=== PATIENT | male | born 1960 | race Caucasian/White ===

== ENCOUNTER 2018-12-14 09:05 | Outpatient (CLI) | payer OTHER ==
--- NOTE | 2018-12-14 10:08 | RAD ---
XR Shoulder Rt 3 View STANDARD: 12/14/2018 12:00 AM CLINICAL INDICATION: Primary osteoarthritis right shoulder COMPARISON: None. FINDINGS: There is severe osteoarthritis of the right shoulder with obliteration of joint space, osseous remode ling of the humeral head, subchondral sclerosis and subchondral, degenerative cyst formation. No fracture evident. IMPRESSION: Severe osteoarthritis of the right shoulder.
--- NOTE | 2018-12-14 11:28 | RAD ---
XR Shoulder Rt Arthrogram Right shoulder arthrogram, under fluoroscopic guidance CLINICAL HISTORY: Osteoarthritis. Chronic right shoulder pain, limited rotational motion. PROCEDURE: Informed consent was obtained from the patient. Respiratory Medicine Physician imaging was performed. The patient's right shoulder was prepped and draped in a standard sterile fashion. Using fluoroscopic guidance, the right shoulder was localized. Topical anesthesia with buffered 1% lidocaine was performed. Subseq uently, uneventful access into the right shoulder was performed with a 22-gauge needle, which was confirmed with a small volume of radiopaque contrast. An 8 cc contrast cocktail containing radiopaque contrast, saline, lidocaine and epinephrine was instilled into the right shoulder joint. Fluoroscopic imaging was acquired and was stored for documentation. The needle was removed. There wer e no procedural complications. Patient tolerated the procedure well. Patient was transferred to CT Department to undergo CT arthrogram. Reference separate report for furt her details. IMPRESSION: Technically successful right shoulder arthrogram, under fluoroscopic guidance.
--- NOTE | 2018-12-14 13:41 | CT ---
CT ARTHROGRAM OF RIGHT SHOULDER: Date: 12/14/18 INDICATION: History of right shoulder pain. COMPARISON: Right shoulder radiograph dated 12/14/18. FINDINGS: There is severe glenohumeral osteoarthrosis. There is an intratendinous delaminating tear involving t he cranial and mid subscapularis at the attachment involving less than 1/3 of the tendon thickness. N o full thickness tear is seen involving the supraspinatus or infraspinatus. No overt muscular atrophy is grossly evident. Biceps tendon is located. There is mild hypertrophy seen within the glenohumeral joint. There is mild AC joint osteoarthrosis. IMPRESSION: 1. Severe glenohumeral osteoarthrosis. 2. 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 3. Mild AC joint osteoarthrosis. POS: OFF
== END 2018-12-14 09:06 | disposition home or self-care (01) ==
LOC: RAD 09:05
PROVIDERS: ATTEND Orthopaedic Surgery
DX: M19.011 Primary osteoarthritis, right shoulder (principal)
CPT/HCPCS: 23350

== ENCOUNTER 2019-01-09 06:59 | Outpatient (CLI) | payer OTHER ==
[2019-01-09 17:52] LABS: #Basophils 0.1 thou/uL (0.0-0.2); #Eosinphils 0.3 thou/uL (0.0-0.7); #Lymphocytes 2.5 thou/uL (1.20-3.40); #Monocytes 0.6 thou/uL (0.11-0.59); #Neutrophils 2.5 thou/uL (1.40-6.50); %Basophils 1.3 % (0.0-1.0); %Eosinophils 5.1 % (0.0-10.0); %Lymphocytes 41.3 % (21.0-51.0); %Monocytes 9.6 % (0.0-10.0); %Neutrophils 42.7 % (42.0-75.0); Hemoglobin 15.1 g/dL (14.0-18.0); Mean Corpuscular HGB CONC 35.1 g/dL (32.0-36.0); Mean Corpuscular Hemoglobin 31.2 pg (27.0-31.0); Mean Corpuscular Volume 88.9 fL (78.0-98.0); Mean Platelet Volume 6.9 fL (7.4-10.4); Platelet Count 299 thou/uL (130-400); RBC Distribution Width 11.4 % (11.5-14.5); Red Blood Cell (RBC) Count 4.83 mill/uL (4.70-6.10); White Blood Cell (WBC) Count 5.9 thou/uL (4.8-10.8)
[2019-01-09 18:13] LABS: Anion Gap 11 mmol/L (10-20); BUN (Urea Nitrogen) 12 mg/dL (8.4-25.7); Calc. Creatinine Clearance 0 mL/min (70-130); Calcium 10.1 mg/dL (7.8-10.44); Carbon Dioxide 33 mmol/L (22-29); Chloride 97 mmol/L (98-107); Estimated GFR-MDRD 82; Glucose 86 mg/dL (70-105); Potassium 3.8 mmol/L (3.5-5.1); Sodium 137 mmol/L (136-145)
== END 2019-01-09 07:00 | disposition home or self-care (01) ==
LOC: LABBT 06:59
PROVIDERS: ATTEND Orthopaedic Surgery
DX: Z01.818 Encounter for other preprocedural examination (principal); M19.011 Primary osteoarthritis, right shoulder
CPT/HCPCS: 80048; 85025; 87081; 93005; 93010

== ENCOUNTER 2019-01-12 07:00 | Inpatient (IN) | payer OTHER ==
[2019-01-12] MEDS ORDERED: Tranexamic Acid 1,000 MG/10 ML VIAL ONE (07:56)
[2019-01-12] MEDS ORDERED: Sodium Chloride 0.9% 100 ML ONE (07:56)
[2019-01-12] MEDS ORDERED: Ondansetron PF 4 MG/2 ML Vial IVP PRN (08:59)
[2019-01-12] MEDS ORDERED: Fentanyl 100 MCG/2 ML VIAL SLOW IVP PRN (08:59)
[2019-01-12] MEDS ORDERED: Zolpidem Tartrate 5 MG TAB PO PRN (08:59)
[2019-01-12] MEDS ORDERED: traMADol HCl 50 MG TAB PO PRN (08:59)
[2019-01-12] MEDS ORDERED: HYDROcodone/Acetaminophen 10/325 mg Tablet PO PRN (08:59)
[2019-01-12] MEDS ORDERED: Promethazine HCl 25 MG/ML VIAL IM PRN ×2 (08:59→12:54)
[2019-01-12] MEDS ORDERED: Ropivacaine 0.2% 550 ML 550 ML NERVE BLCK SCH (08:59)
[2019-01-12] MEDS ORDERED: Midazolam HCl 2 mg/2 ml Vial ONE (09:12)
[2019-01-12] MEDS ORDERED: Fentanyl 100 MCG/2 ML VIAL ONE ×2 (09:12→12:00)
[2019-01-12] MEDS ORDERED: Scopolamine 1.5 mg/72 hour Patch ONE (09:16)
[2019-01-12] MEDS ORDERED: Acetaminophen 325 MG TAB PO PRN (09:30)
[2019-01-12] MEDS ORDERED: Bisacodyl 10 MG SUPP PR PRN (09:30)
[2019-01-12] MEDS ORDERED: PROVENTIL INHALER 6.7 G (200 INHALATIONS) INH PRN (09:32)
[2019-01-12] MEDS ORDERED: Aspirin 81 mg Enteric Coated Tablet PO SCH (09:45)
[2019-01-12] MEDS ORDERED: Glycopyrrolate 0.2 MG/ML 5 ML SYRINGE ONE (10:22)
[2019-01-12] MEDS ORDERED: Lidocaine 1% PF 5 ML VIAL ONE (10:22)
[2019-01-12] MEDS ORDERED: Ropivacaine 0.5% HCl/PF (150 MG/30 ML VIAL) ONE (10:22)
[2019-01-12] MEDS ORDERED: PHENYLEPHRINE-NS 100 MCG/ML 10 ML SYRINGE ONE (10:22)
[2019-01-12] MEDS ORDERED: Ondansetron PF 4 MG/2 ML Vial ONE (10:22)
[2019-01-12] MEDS ORDERED: ePHEDrine/0.9% NaCl/PF SYRINGE 50 mg/10 ml ONE (10:22)
[2019-01-12] MEDS ORDERED: Rocuronium Bromide 10 MG/ML (10ML VIAL) ONE (10:22)
[2019-01-12] MEDS ORDERED: PROPOFOL 200 MG/20 ML VIAL ONE (10:22)
[2019-01-12] MEDS ORDERED: Ropivacaine 0.2% HCl/PF (40 MG/20 ML VIAL) ONE (10:22)
[2019-01-12] MEDS ORDERED: Ondansetron HCl/PF 4 MG/2 ML Vial IVP PRN (12:54)
[2019-01-12] MEDS ORDERED: Promethazine HCl 25 MG/ML VIAL SLOW IVP PRN (12:54)
[2019-01-12 13:05] VITALS: BMI 25.0
[2019-01-12] MEDS: Ketorolac Tromethamine 30 MG/ML VIAL IVP SCH ×3 (13:12→22:56)
[2019-01-12] MEDS: Dextrose 5 %-0.45 % NaCl 1,000 ML IV SCH ×2 (14:33→20:35)
[2019-01-12] MEDS: CEFAZOLIN 2 GM in Premix Bag 1 BAG IVPB SCH ×2 (15:50→22:56)
--- NOTE | 2019-01-12 17:33 | OP ---
DATE OF PROCEDURE: 01/12/2019 PREOPERATIVE DIAGNOSIS: Degenerative joint disease of the right shoulder with biceps tendinitis. POSTOPERATIVE DIAGNOSIS: Degenerative joint disease of the right shoulder with biceps tendinitis. PROCEDURES PERFORMED: Right total shoulder arthroplasty and biceps tenodesis. COUNTY AGENT: [place]. BLOOD LOSS: Less than 100. SPECIMEN: None. DRAIN: None. COMPLICATION: None. IMPLANTS USED: Tornier 3C stem with 46 high-offset head, index 1, medium glenoid. NARRATIVE REPORT: After standard deltopectoral approach, I examined the biceps tendon sheath which was inflamed and had a very thick bursal layer over the top with underlying ganglion. Biceps was opened. The biceps tendon sheath was opened. Biceps was in poor condition. It was taken off the superior glenoid tubercle and tacked and then tenodesed using #5 Ethibond suture to bone below the joint. The subscapularis was taken off using an osteotome to make a small lesser trochanteric osteotomy, tagged with four #5 Ethibond sutures. Head was dislocated. Osteophytes were trimmed. I released the anterior capsule, got the subscapularis to an elastic consistency. I then cut the humeral head at a 135-degree angle and trimmed the osteophytes. The head was then broached and sized appropriately. A trial prosthesis was left in the shaft and I approached the glenoid. Bone spurs were removed from around the glenoid. True center of the glenoid was identified. I made a single drill hole and reamed with an appropriate size reamer, trimmed osteophytes, punched the keel and did a trial reduction with the glenoid which appeared to be an appropriate fit. Trials were removed and irrigation was performed. The glenoid was punched into place and cement was allowed to cure. Extraneous cement was removed. Attention was turned back to the humerus where trial heads were used and the appropriate size was confirmed with the appropriate elasticity of the tissues. Trial was removed. Irrigation was performed. Four #5 Ethibond sutures were placed through the lesser tuberosity. The permanent implant was impacted into place. The subscapularis was repaired in a double-row fashion. The rotator interval was repaired with #1 Ethibond. Irrigation performed again. Deltopectoral interval was tacked closed with 0 Vicryl, subcutaneous closed with 2-0 Vicryl. The skin was closed with alex. Sterile dressings applied. The patient was placed in a sling. There were no complications. Job ID: [id number]
[2019-01-12] MEDS ORDERED: Vancomycin 1.5 GRAM/300 ML BAG 1.5 GM in Premix Bag 1 BAG IVPB SCH (20:00)
[2019-01-12] MEDS ORDERED: Losartan 25 MG TAB PO SCH (21:00)
[2019-01-12] MEDS ORDERED: Hydrochlorothiazide 25 MG TAB PO SCH (21:00)
[2019-01-13] MEDS: HYDROcodone/Acetaminophen 10/325 mg Tablet PO PRN ×2 (00:57→06:04)
[2019-01-13] MEDS: traMADol HCl 50 MG TAB PO PRN ×2 (03:27→08:49)
[2019-01-13] MEDS: Ketorolac Tromethamine 30 MG/ML VIAL IVP SCH ×2 (06:01→10:58)
[2019-01-13 07:53] VITALS: BP 125/79; TEMP 98.7
== END 2019-01-13 12:08 | disposition home or self-care (01) | DRG 483 ==
LOC: SURG A 07:00 → SURG B 12:35 → EDSTATUS 17:51
PROVIDERS: ADMIT Orthopaedic Surgery; ATTEND Orthopaedic Surgery
PROC: 0RRJ0JZ Replacement of Right Shoulder Joint with Synthetic Substitute, Open Approach (ICD-10-PCS; principal; 2019-01-12)
PROC: 0LS30ZZ Reposition Right Upper Arm Tendon, Open Approach (ICD-10-PCS; 2019-01-12)
DX: M19.011 Primary osteoarthritis, right shoulder (principal); I10 Essential (primary) hypertension; J45.909 Unspecified asthma, uncomplicated; Z79.51 Long term (current) use of inhaled steroids; Z79.899 Other long term (current) drug therapy
CPT/HCPCS: 80048; 85025; 87081; 93005; A4306; C1713; J0690; J1885; J2001; J2250; J2405; J2704; J2795; J3010; J3370; J3490